=== PATIENT | male | born 1960 | race Hispanic/Latino ===

== ENCOUNTER 2016-10-17 11:56 | Day surgery (SDC) | payer BC ==
--- NOTE | 2016-10-17 12:30 | Anesthesia Day of Surgery ---
Anesthesia Day of Surgery - Day of Surgery Patient Examined: Yes Patient H&P Reviewed: Yes Patient is NPO: Yes
--- NOTE | 2016-10-17 12:30 | Anesthesia Consultation ---
Anesthesia Consult and Med Hx Date of service: 10/17/16 - Airway Anesthetic Teeth Evaluation: Good ROM Head & Neck: Adequate Mental/Hyoid Distance: Adequate Mallampati Class: Class II Intubation Access Assessment: Probably Good - Pulmonary Exam CTA: Yes - Cardiac Exam Cardiac Exam: RRR - Pre-Operative Health Status ASA Pre-Surgery Classification: ASA2 Proposed Anesthetic Plan: General - Cardiovascular System Hx Hypertension: Yes
[2016-10-17] MEDS ORDERED: DILAUDID ONE ×2 (12:37→14:24)
[2016-10-17] MEDS ORDERED: DIPRIVAN 10 MG/ML IV ONE (12:37)
[2016-10-17] MEDS ORDERED: XYLOCAINE MPF 2% ONE (12:37)
[2016-10-17] MEDS ORDERED: MARCAINE 0.25% INFILTRATI ONE (12:47)
[2016-10-17] MEDS ORDERED: XYLOCAINE 1% 20 mL ONE (12:48)
[2016-10-17] MEDS ORDERED: VERSED IV NR (13:00)
[2016-10-17] MEDS ORDERED: ANCEF/STERILE WATER 2 GM/20 ML IV NR (13:00)
[2016-10-17] MEDS ORDERED: PEPCID IV NR (13:00)
[2016-10-17] MEDS ORDERED: TRANSDERM-SCOP TD NR (13:00)
[2016-10-17] MEDS ORDERED: NEO SYNEPHRINE/NS Syringe(OR USE) IV ONE (13:00)
[2016-10-17] MEDS ORDERED: REGLAN IV NR (13:00)
[2016-10-17] MEDS ORDERED: ZOFRAN IV NR (13:00)
[2016-10-17] MEDS ORDERED: NACL 0.9% 1000 ML 1,000 ML IV SCH (13:00)
[2016-10-17] MEDS ORDERED: DECADRON ONE (13:36)
[2016-10-17] MEDS ORDERED: ZOFRAN ONE (13:36)
[2016-10-17] MEDS ORDERED: ROBINUL ONE (13:39)
--- NOTE | 2016-10-17 13:52 | Post Operative Note ---
Date of procedure: 10/17/16 Pre-op diagnosis: scrotal mass hematoma Post-op diagnosis: same Findings: as above Procedure: evacuation post op hematoma Anesthesia: GETA Surgeon: RENZO DING Estimated blood loss: minimal Pathology: list (sac) Specimen disposition: to lab Condition: stable Disposition: PACU
--- NOTE | 2016-10-17 13:53 | Discharge Summary ---
Short Stay Discharge Plan Activity: other (no striaing ) Weight Bearing Status: Full Weight Bearing Diet: regular Wound: keep clean and dry, change dressing Special Instructions: other (ice packs x 24 hrs ) Durable Medical Equipment Needed Upon Discharge: other (scrotal elevation ) Follow up with: JARED DODSON MD [Primary Care Provider] - 7 Days RENZO DING MD [Staff Physician] - 7 Days
[2016-10-17] MEDS ORDERED: NACL 0.9% 1000 ML 1,000 ML ONE (14:05)
[2016-10-17] MEDS ORDERED: NACL 0.9% IR ONE (14:09)
[2016-10-17] MEDS: DILAUDID IV PRN ×2 (15:00→15:10)
[2016-10-17] MEDS ORDERED: ZOFRAN IV PRN (15:15)
--- NOTE | 2016-10-17 15:23 | Operative Report ---
PREOPERATIVE DIAGNOSIS: Huge scrotal mass with large right scrotal hematoma, post-detorsion in [place]. POSTOPERATIVE DIAGNOSIS: Huge scrotal mass with large right scrotal hematoma, post-detorsion in [place]. PROCEDURE: Right scrotal evacuation of the huge scrotal hematoma with fixation stitch medially of the right testis. SURGEON: Riley Gramajo MD ANESTHESIA: General. FINDINGS: This is a gentleman who had surgery in [place] for torsion. Postoperatively, he flew back within a day or so and has this huge scrotal mass which he can barely walk. DESCRIPTION OF PROCEDURE: The patient was brought to the operating room and placed on the operating table. Following induction of anesthesia, placed in supine position, prepped and draped in usual sterile fashion. An oblique incision was made over this mass, carried down to the tunica vaginalis. Right away, we saw blue discoloration. We opened it and very dark old blood was noted with approximately 100 mL of clots. These were evacuated out, the area was irrigated freely. The testis was viable and ____ and one suture which looks like it probably came out, which medially was replaced through the fixation. Wound was irrigated. A 1/2 inch drain was placed in the dependent portion of the scrotum and secured with a silk. The tunica vaginalis was approximated with 3-0, chromic. Superficial fascia, 2-0 chromic and skin with interrupted #2 chromic. The patient tolerated the procedure well. No significant blood loss. This was old, brought to recovery in stable condition. Family notified. JOB# [id number] MICHAEL/ALETHEA
[2016-10-17] MEDS ORDERED: PERCOCET 5/325 PO ONE (15:53)
[2016-10-17 15:56] VITALS: BP 153/97
[2016-10-17] MEDS ORDERED: DEMEROL IV PRN (16:30)
== END 2016-10-17 17:12 | disposition home or self-care (01) ==
LOC: OR 11:56
PROVIDERS: ATTEND Urology
DX: S30.22XA Contusion of scrotum and testes, initial encounter (principal); I10 Essential (primary) hypertension; X58.XXXA Exposure to other specified factors, initial encounter; Z79.899 Other long term (current) drug therapy
CPT/HCPCS: 54700; 88304; J0690; J1100; J1170; J2175; J2250; J2370; J2405; J2704; J2765; J7030